=== PATIENT | male | born 1970 | race Caucasian/White ===

== ENCOUNTER 2017-03-15 22:26 | Inpatient (IN) | payer OTHER ==
[~2017-03-15] VITALS: Ht 182.9 cm; Wt 111.9 kg
[~2017-03-15 22:26] MED LIST: ALBUAER2 PO; BUPR-83 PO; CALCTAB5 PO; DULO60CA44 PO; ERGO1CAP35 PO; ETOD400T PO; MAGNESIUM PO; OMEG10007 PO; PREG1CAP70 PO; TIZA4CAP PO; TRAM-10 PO
[2017-03-15] MEDS ORDERED: FRCT/ PO (23:25)
[2017-03-15] MEDS ORDERED: DICY10CA12 PO (23:25)
[2017-03-15] MEDS ORDERED: TRAZ100T29 PO (23:25)
[2017-03-15] MEDS ORDERED: MAGN400T6 PO (23:25)
[2017-03-15] MEDS ORDERED: ATOR-24 PO (23:25)
[2017-03-15] MEDS ORDERED: SENN-61 PO (23:25)
[2017-03-15] MEDS ORDERED: SIME80CH PO (23:25)
[2017-03-15] MEDS ORDERED: LCTX PO (23:25)
[2017-03-15] MEDS ORDERED: HALOPERIDOL LACTATE 5 MG/ML 1 ML VIAL IM STA (23:38)
[2017-03-15] MEDS ORDERED: LORAZEPAM 2 MG/ML 1 ML VIAL IM STA (23:38)
--- NOTE | 2017-03-16 00:03 | EMERGENCY ROOM VISIT NOTE ---
History Report prepared by Govind: Harjeet Almanzar Under the Supervision of: Dr. Bella Mazariegos M.D. First contact with patient: 23:36 Chief Complaint: MENTAL HEALTH EVALUATION Stated Complaint: MENTAL HEALTH History of Present Illness The patient is a 46 year old male who presents to the Emergency Room for a mental health evaluation. This HPI is grossly limited due to the poor cooperation and combativeness of the patient. History Limited By: poor cooperation Review of Systems See HPI for pertinent positives & negatives. A total of 10 systems reviewed and were otherwise negative. Past Medical & Surgical Medical Problems: (1) HTN (hypertension) (2) Hyperlipidemia (3) Stomach problems Family History FH: HTN (hypertension) FH: cancer FH: diabetes mellitus Social History Smoking Status: Never Smoker Marital Status: Housing Status: lives with significant other Occupation Status: disabled Current/Historical Medications Scheduled Atorvastatin (Lipitor), 20 MG PO DAILY Bupropion (Wellbutrin), 100 MG PO BID Calcium (Caltrate), 600 MG PO DAILY Dicyclomine Hcl (Dicyclomine Hcl), 10 CAP PO BID Duloxetine Hcl (Cymbalta), 60 MG PO DAILY Fish Oil ([place]-3), 1 CAP PO DAILY Lactobacillus Acidophilus (Lactinex), 1 TAB PO DAILY Magnesium Oxide (Mag-Ox), 400 MG PO DAILY Simethicone (Gas-X), 80 MG PO TID Trazodone Hcl (Trazodone), 150 MG PO HS Scheduled PRN Acetamin/Butalbital/Caffeine (Fioricet), 2 TAB PO DAILY PRN for Headache Etodolac (Etodolac), 400 TAB PO TID PRN for PRN Senna (Senokot), 1 TAB PO DAILY PRN for PRN Allergies Coded Allergies: No Known Allergies (Unverified , 03/15/17) Physical Exam Vital Signs Date Time Temp Pulse Resp B/P Pulse Ox O2 Delivery O2 Flow Rate FiO2 03/16/17 03:55 90 16 112/63 95 Room Air 03/16/17 00:30 84 18 127/86 99 Room Air 03/15/17 22:30 36.8 87 18 137/97 98 Room Air Physical Exam Vital signs reviewed. General: Well-appearing male, slightly agitated. Being physically restrained by security. Yelling obscenities. Police in the room HEENT: No scleral icterus, PERRLA, neck supple. Atraumatic. Cardiovascular: Regular rate and rhythm, no extra sounds. Pulmonary: Clear to auscultation bilaterally, normal work of breathing. Abdomen: Soft, nontender, nondistended, positive bowel sounds. Musculoskeletal: Atraumatic, no peripheral edema. Neurologic: Patient awake alert and oriented x 3, full strength in all 4 extremities. Cranial nerves 2 through 12 grossly intact. Skin: Warm, dry, no rash Psych: Denies suicidal ideation. Medical Decision & Procedures Laboratory Results 03/16/17 00:14 Red Blood Count 5.40, Mean Corpuscular Volume 83.1, Mean Corpuscular Hemoglobin 28.3, Mean Corpuscular Hemoglobin Concent 34.1, Mean Platelet Volume 10.5, Neutrophils (%) (Auto) 63.3, Lymphocytes (%) (Auto) 30.7, Monocytes (%) (Auto) 4.0, Eosinophils (%) (Auto) 1.4, Basophils (%) (Auto) 0.3, Neutrophils # (Auto) 4.94, Lymphocytes # (Auto) 2.39, Monocytes # (Auto) 0.31, Eosinophils # (Auto) 0.11, Basophils # (Auto) 0.02 03/16/17 00:14 Test 03/16/17 00:14 03/16/17 01:31 White Blood Count 7.79 K/uL (4.8-10.8) Red Blood Count 5.40 M/uL (4.7-6.1) Hemoglobin 15.3 g/dL (14.0-18.0) Hematocrit 44.9 % (42-52) Mean Corpuscular Volume 83.1 fL (80-100) Mean Corpuscular Hemoglobin 28.3 pg (25-34) Mean Corpuscular Hemoglobin Concent 34.1 g/dl (32-36) Platelet Count 200 K/uL (130-400) Mean Platelet Volume 10.5 fL (7.4-10.4) Neutrophils (%) (Auto) 63.3 % Lymphocytes (%) (Auto) 30.7 % Monocytes (%) (Auto) 4.0 % Eosinophils (%) (Auto) 1.4 % Basophils (%) (Auto) 0.3 % Neutrophils # (Auto) 4.94 K/uL (1.4-6.5) Lymphocytes # (Auto) 2.39 K/uL (1.2-3.4) Monocytes # (Auto) 0.31 K/uL (0.11-0.59) Eosinophils # (Auto) 0.11 K/uL (0-0.5) Basophils # (Auto) 0.02 K/uL (0-0.2) RDW Standard Deviation 39.1 fL (36.4-46.3) RDW Coefficient of Variation 13.0 % (11.5-14.5) Immature Granulocyte % (Auto) 0.3 % Immature Granulocyte # (Auto) 0.02 K/uL (0.00-0.02) Anion Gap 13.0 mmol/L (3-11) Est Creatinine Clear Calc Drug Dose 75.9 ml/min Estimated GFR () 59.0 Estimated GFR (Non- 50.9 BUN/Creatinine Ratio 6.9 (10-20) Calcium Level 9.1 mg/dl (8.5-10.1) Total Bilirubin 0.6 mg/dl (0.2-1) Direct Bilirubin 0.2 mg/dl (0-0.2) Aspartate Amino Transf (AST/SGOT) 24 U/L (15-37) Alanine Aminotransferase (ALT/SGPT) 57 U/L (12-78) Alkaline Phosphatase 62 U/L (45-117) Total Protein 7.6 gm/dl (6.4-8.2) Albumin 4.0 gm/dl (3.4-5.0) Thyroid Stimulating Hormone (TSH) 4.620 uIu/ml (0.300-4.500) Free Thyroxine 0.98 ng/dl (0.80-1.60) Free Triiodothyronine 3.64 pg/ml (2.30-4.20) Salicylates Level < 1.7 mg/dl (2.8-20) Acetaminophen Level < 2 ug/ml (10-30) Ethyl Alcohol mg/dL < 3.0 mg/dl (0-3) Urine Color YELLOW Urine Appearance CLEAR (CLEAR) Urine pH 5.5 (4.5-7.5) Urine Specific [place] 1.010 (1.000-1.030) Urine Protein NEG (NEG) Urine Glucose (UA) NEG (NEG) Urine Ketones NEG (NEG) Urine Occult Blood NEG (NEG) Urine Nitrite NEG (NEG) Urine Bilirubin NEG (NEG) Urine Urobilinogen NEG (NEG) Urine Leukocyte Esterase NEG (NEG) Urine Opiates Screen NEG (NEG) Urine Methadone, Qualitative NEG (NEG) Urine Barbiturates NEG (NEG) Urine Phencyclidine (PCP) Level NEG (NEG) Ur Amphetamine/Methamphetamine NEG (NEG) MDMA (Ecstasy) Screen POS (NEG) Urine Benzodiazepines Screen NEG (NEG) Urine Cocaine Metabolite NEG (NEG) Urine Marijuana (THC) NEG (NEG) Laboratory results per my review. Medications Administered Medications (Trade) Dose Ordered Sig/Clifford Route Start Time Stop Time Status Last Admin Dose Admin Haloperidol Lactate (Haldol Inj) 10 mg NOW STAT IM 03/15/17 23:38 03/15/17 23:39 DC 03/15/17 23:38 10 MG Lorazepam (Ativan Inj) 2 mg NOW STAT IM 03/15/17 23:38 03/15/17 23:39 DC 03/15/17 23:38 2 MG ED Course 2337: Past medical records reviewed. The patient was evaluated in room A5. A complete history and physical examination was performed. 2338: Ordered Ativan 2 mg IM, Haldol 10 mg IM. 0240: I discussed the case with the [address] [place] [address] Delegate at this time. She states that the patient claimed "I do not wanna live anymore" before going to the truck where he was keeping his guns. Suggests inpatient treatment. 0511: The patient has been accepted to [address] [place] [address] at this time. Medical Decision Differential diagnosis: Etiologies such as mood disorder, infection, hypoglycemia, electrolyte abnormalities, cardiac sources, intracerebral event, toxicologic, neurologic, as well as others were entertained. This patient was evaluated and appeared to be in no significant distress. The patient was agitated and combative. He was restrained by security, police were present. The patient was violent and required sedation with 10 mg of IM Haldol and 2 mg of IM Ativan. Eventually the patient was able to be released from the [address] [place] [address]. He was much more cooperative. Patient was evaluated by mental health after a 302 warrant. After conversations with the patient's and with him, it was determined that the patient made significant gestures towards suicide attempt. His was able to interrupt the attempt. At this time I do not think the patient is stable to be released. The 302 was signed. 3 [address]. has accepted the patient for admission. Consults Time Called: 020 Consulting Physician: [address] [place] [address] Anuraggatjackie Returned Call: 0240 I discussed the case with the [address] [place] [address] Delegate at this time. She states that the patient claimed "I do not wanna live anymore" before going to the truck where he was keeping his guns. Suggests inpatient treatment. Impression Primary Impression: Mood disorder Additional Impression: Suicidal behavior Critical Care I have personally spent greater than 30 minutes of critical care time in the direct management of this patient. This includes bedside care, interpretation of diagnostic studies, and testing, discussion with consultants, patient, and family members, and other required patient management activities. This 30 minutes is in excess of all separately billable procedures. Scribe Attestation The scribe's documentation has been prepared under my direction and personally reviewed by me in its entirety. I confirm that the note above accurately reflects all work, treatment, procedures, and medical decision making performed by me. Departure Information Dispostion [facility] ([address] [place] [address] ) Referrals No Doctor, Assigned (PCP) Patient Instructions My [facility] Problem Qualifiers
[2017-03-16 00:39] LABS: BASO % 0.3 %; BASO ABS # 0.02 K/uL (0-0.2); COMPLETE YES; EOS % 1.4 %; HEMATOCRIT 44.9 % (42-52); IG% 0.3 %; LYMPH % 30.7 %; LYMPH ABS # 2.39 K/uL (1.2-3.4); MEAN CELL VOLUME 83.1 fL (80-100); MEAN CORPUSCULAR HEMOGLOBIN 28.3 pg (25-34); MEAN CORPUSCULAR HGB CONC 34.1 g/dl (32-36); MEAN PLATELET VOLUME 10.5 fL (7.4-10.4); NEUT % 63.3 %; PLATELET COUNT 200 K/uL (130-400); WHITE BLOOD COUNT 7.79 K/uL (4.8-10.8)
[2017-03-16 01:00] LABS: BUN/CREATININE RATIO 6.9 (10-20); CALCIUM 9.1 mg/dl (8.5-10.1); CREATININE 1.6 mg/dl (0.60-1.40); POTASSIUM 3.6 mmol/L (3.5-5.1)
[2017-03-16 01:10] LABS: ACETAMINOPHEN < 2 ug/ml (10-30)
[2017-03-16 01:11] LABS: THYROID STIMULATING HORMONE 4.62 uIu/ml (0.300-4.500)
[2017-03-16 01:47] LABS: URINE APPEARANCE CLEAR (CLEAR); URINE BILIRUBIN NEG (NEG); URINE COLOR YELLOW; URINE NITRITE NEG (NEG); URINE PH 5.5 (4.5-7.5); UROBILINOGEN NEG (NEG); ZZUR CULT IF INDIC CLEAN CATCH NO
[2017-03-16 01:56] LABS: MANUAL MICROSCOPIC REQUIRED? NO; REVIEW REQ? NO
[2017-03-16 02:20] LABS: BENZODIAZEPINE, URINE NEG (NEG); COCAINE,URINE NEG (NEG); PHENCYCLIDINE, URINE NEG (NEG)
[2017-03-16] MEDS ORDERED: NURSING VERBAL MED ORDER ONE (05:45)
[2017-03-16 05:50] VITALS: O2SAT 95
[2017-03-16] MEDS ORDERED: ALBUTEROL HFA 8 GM INHALER INH PRN (06:30)
[2017-03-16] MEDS ORDERED: MAGNESIUM HYDROXIDE SUSP 30 ML UDC PO PRN (06:30)
[2017-03-16] MEDS ORDERED: ACETAMINOPHEN 325 MG TAB PO PRN (06:30)
[2017-03-16] MEDS ORDERED: TRAMADOL HCL 50 MG TAB PO PRN (06:30)
[2017-03-16] MEDS ORDERED: hydrOXYzine HCL 25 MG TAB PO PRN ×2 (06:30)
[2017-03-16] MEDS ORDERED: SODIUM CHLORIDE 0.65% NA SOLN 45 ML (OCEAN) PRN (06:30)
[2017-03-16] MEDS ORDERED: BISMUTH SUBSALICYLATE PER ML OMNICELL CHARGE PO PRN (06:30)
[2017-03-16] MEDS ORDERED: ALUMINUM/MAGNESIUM SUSP 30 ML UDC PO PRN (06:30)
[2017-03-16] MEDS ORDERED: PREG1CAP70 PO (08:47)
[2017-03-16] MEDS ORDERED: CHOL400T5 PO (08:50)
[2017-03-16] MEDS ORDERED: DICY10CA12 PO (08:55)
[2017-03-16] MEDS ORDERED: SIME80CH40 PO (08:56)
[2017-03-16] MEDS ORDERED: CYAN100073 PO (08:57)
[2017-03-16 11:28] VITALS: BP 117/75; PULSE 86; TEMP 36.6; Ht 182.9 cm; Wt 111.9 kg
[2017-03-16] MEDS: DULOXETINE HCL 60 MG CAP PO SCH (11:57)
[2017-03-16] MEDS: MAGNESIUM OXIDE 400 MG TAB PO SCH (11:57)
[2017-03-16] MEDS: CALCIUM 600MG + VIT D 400 IU TAB PO SCH (11:57)
[2017-03-16] MEDS: OMEGA-3 (PURIFIED FISH OIL) 1 GM CAP PO SCH (11:58)
[2017-03-16] MEDS: PREGABALIN 150 MG CAP PO SCH ×3 (11:59→21:04)
[2017-03-16] MEDS ORDERED: LORAZEPAM 1 MG TAB PO PRN (13:15)
[2017-03-16] MEDS ORDERED: HALOPERIDOL 5 MG TAB PO PRN (13:15)
[2017-03-16 14:30] VITALS: BP 117/75; PULSE 86; TEMP 36.6
[2017-03-16] MEDS: ETODOLAC~ORDER AWAITING ACTION SCH (15:27)
--- NOTE | 2017-03-16 17:26 | Psychiatric History & Physical ---
History Date of Service Mar 16, 2017. Identifying Data Brain Mcdermott is a 46-year-old male who currently lives in [place] with his and son. Brain Mcdermott was admitted on a 302 involuntary commitment. Patient was brought to the ED by EMS and committed after a complicated ED course which included elopement. Chief Complaint "I just couldn't handle it", referring to finding out his was unfaithful History of Present Illness Mr. Mcdermott appeared tired this am following IM Haldol and Ativan received in ED. A taser was used during his elopement attempt from the ED and he was in 4 pt restraints for a period. He states he has a history of significant PTSD symptoms and felt locked in and panicked when he saw security "circling". He states that his overreacted after their argument when he was attempting to leave in his truck. He admittedly keeps a handgun in his truck (his brother has since secured). He denies making statements about overdosing but his expressed concern that he did and that he had access to 90 day supply of meds. He stated that his was unfaithful 7 years ago but he just found out about it this past Tuesday. Their relationship was going particularly well in recent months other than stress of their only son being on house arrest. He has chronic pain due to fibromyalgia. He did not want to discuss triggers/causes of his PTSD but clearly stated he has been having bad dreams and flashbacks related to his service in [employer] in the [employer]st [employer]. He feels that his symptoms have actually improved since being started on Cymbalta and states he already [facility] Sleep has been good with trazadone and he denied depressive symptoms prior to his 's revelation. He believes that she told him about the affair as perhaps a coworker or former acquaintance recently was bringing up verifiable details and he believes she was concerned that he would hear it from someone else. Past Psychiatric History Prior OP Treatment: psychiatrist, therapist Prior Psych Hospitalizations: none Access to a Gun: Yes (gun in truck (brother removed and has now)) Suicide Attempts: No Past Medication Trials patient reports just his current meds, takes Wellbutrin am and midday Past Medical/Surgical History (1) Kidney stone (2) HTN (hypertension) (3) Hyperlipidemia (4) Fibromyalgia history of nerve gas exposure, main reason for service connected disability Allergies Allergies: Coded Allergies: No Known Allergies (Unverified , 03/15/17) Home Medications Scheduled Atorvastatin (Lipitor), 20 MG PO DAILY Bupropion (Wellbutrin), 100 MG PO BID Calcium (Caltrate), 600 MG PO DAILY Cholecalciferol (Vitamin D), 1 TAB PO DAILY Cyanocobalamin (B12), 1 TAB PO DAILY Dicyclomine Hcl (Dicyclomine Hcl), 1 CAP PO QID Duloxetine Hcl (Cymbalta), 60 MG PO DAILY Fish Oil ([place]-3), 1 CAP PO DAILY Lactobacillus Acidophilus (Lactinex), 1 TAB PO DAILY Magnesium Oxide (Mag-Ox), 400 MG PO DAILY Pregabalin (Lyrica), 150 MG PO TID Trazodone Hcl (Trazodone), 150 MG PO HS Scheduled PRN Acetamin/Butalbital/Caffeine (Fioricet), 2 TAB PO DAILY PRN for Headache Etodolac (Etodolac), 400 TAB PO TID PRN for PRN Senna (Senokot), 1 TAB PO DAILY PRN for PRN Simethicone (Cvs Gas Relief), 1 TAB PO TID PRN for Gas or Constipation Family History FH: HTN (hypertension) FH: cancer FH: diabetes mellitus History of Suicide: No History of Substance Abuse: No Psychiatric History: No Alcohol Use Alcohol Use In Past 12 Months: No AUDIT Total Score: 0 Smoking Use Smoking Status: Never Smoker Substance History denied Personal History Lives in: [place] Education: graduated from high school Work History: [employer], disability following [employer]. Relationship History: Children: 1 son Legal History: none Psychological Trauma History: Combat Experiences Review of Systems Psych: denies symptoms other than stated above Constitutional: generalized fatigue/muscle complaints due to ED interventions in excess of his baseline fibromyalgia Cardiovascular: denied GI: denied Neurologic: denied, no dystonia Remainder of 10 body systems also reviewed and denied other than noted above. Examination Physical Examination A physical exam was performed in the ER by Dr. Mazariegos prior to admission to the unit. I accept that physical as correct/medical clearance for the inpatient physical exam. Vital Signs Vital Signs Past 12 Hours Date Time Temp Pulse Resp B/P Pulse Ox O2 Delivery O2 Flow Rate FiO2 03/16/17 14:30 36.6 86 16 117/75 03/16/17 11:28 36.6 86 16 117/75 03/16/17 05:50 67 20 114/71 95 Room Air Laboratory Results Last 24 Hours Test 03/16/17 00:14 03/16/17 01:31 White Blood Count 7.79 K/uL Red Blood Count 5.40 M/uL Hemoglobin 15.3 g/dL Hematocrit 44.9 % Mean Corpuscular Volume 83.1 fL Mean Corpuscular Hemoglobin 28.3 pg Mean Corpuscular Hemoglobin Concent 34.1 g/dl Platelet Count 200 K/uL Mean Platelet Volume 10.5 fL Neutrophils (%) (Auto) 63.3 % Lymphocytes (%) (Auto) 30.7 % Monocytes (%) (Auto) 4.0 % Eosinophils (%) (Auto) 1.4 % Basophils (%) (Auto) 0.3 % Neutrophils # (Auto) 4.94 K/uL Lymphocytes # (Auto) 2.39 K/uL Monocytes # (Auto) 0.31 K/uL Eosinophils # (Auto) 0.11 K/uL Basophils # (Auto) 0.02 K/uL RDW Standard Deviation 39.1 fL RDW Coefficient of Variation 13.0 % Immature Granulocyte % (Auto) 0.3 % Immature Granulocyte # (Auto) 0.02 K/uL Sodium Level 142 mmol/L Potassium Level 3.6 mmol/L Chloride Level 107 mmol/L Carbon Dioxide Level 22 mmol/L Anion Gap 13.0 mmol/L Blood Urea Nitrogen 11 mg/dl Creatinine 1.60 mg/dl Est Creatinine Clear Calc Drug Dose 75.9 ml/min Estimated GFR () 59.0 Estimated GFR (Non- 50.9 BUN/Creatinine Ratio 6.9 Random Glucose 109 mg/dl Calcium Level 9.1 mg/dl Total Bilirubin 0.6 mg/dl Direct Bilirubin 0.2 mg/dl Aspartate Amino Transf (AST/SGOT) 24 U/L Alanine Aminotransferase (ALT/SGPT) 57 U/L Alkaline Phosphatase 62 U/L Total Protein 7.6 gm/dl Albumin 4.0 gm/dl Thyroid Stimulating Hormone (TSH) 4.620 uIu/ml Free Thyroxine 0.98 ng/dl Free Triiodothyronine 3.64 pg/ml Salicylates Level < 1.7 mg/dl Acetaminophen Level < 2 ug/ml Ethyl Alcohol mg/dL < 3.0 mg/dl Urine Color YELLOW Urine Appearance CLEAR Urine pH 5.5 Urine Specific [place] 1.010 Urine Protein NEG Urine Glucose (UA) NEG Urine Ketones NEG Urine Occult Blood NEG Urine Nitrite NEG Urine Bilirubin NEG Urine Urobilinogen NEG Urine Leukocyte Esterase NEG Urine Opiates Screen NEG Urine Methadone, Qualitative NEG Urine Barbiturates NEG Urine Phencyclidine (PCP) Level NEG Ur Amphetamine/Methamphetamine NEG MDMA (Ecstasy) Screen POS Urine Benzodiazepines Screen NEG Urine Cocaine Metabolite NEG Urine Marijuana (THC) NEG Mental Examination During interview pt is: alert and oriented Appearance: appropriately groomed Eye contact is: poor Motor behavior is: no abnormal motor movements Speech: normal in rate, rhythm & volume Affect: depressed Mood is: depressed Thought process: clear, coherent Thought content: reality based without delusions Suicidal thought are: denied Homicidal thoughts are: denied Hallucinations: denies auditory, denies visual Cognition: attention grossly intact, language grossly intact Intelligence estimated to be: consistent with level of education Insight: limited Judgement: limited Impression / Recommendations Impression 46 yo male with history of PTSD related to service admit on 302 after elopement attempt/agitation in ED. Main trigger for suicidal statements (which he denies) was finding out about 's past infidelity. Risk Factors Assessment Male: Yes : Yes Access to guns: Yes (gun in truck (brother removed and has now)) Mental Health Diagnoses: Yes Substance use disorders: No Previous attempt: No Protective Factors Assessment : Yes Recommendations (1) PTSD (post-traumatic stress disorder) 03/16-- unclear if co-morbid depression or reactivity related to PTSD, certainly behavior in ED is consistent with PTSD dx. Denies history of willis and no evidence of willis on exam. The patient is admitted to [facility] ([facility] inpatient mental health unit) on q 15 min checks (behavioral with suicide precautions) for safety. The patient will participate in group, recreational and milieu therapies and will be offered additional individual and family sessions as clinically appropriate. (2) Relationship problem between partners family meeting with today, both agreeable to couples counseling CPT Code Initial Hospital Care: [id number]
[2017-03-16] MEDS: TRAZODONE HCL 100 MG TAB PO SCH (21:04)
[2017-03-17 06:57] VITALS: BP_SYST 111; BP_SYST 113; BP_DIAS 68; BP_DIAS 73; PULSE 101; PULSE 56; TEMP 36.8
[2017-03-17 07:57] LABS: CHOLESTEROL/HDL RATIO 7.8
[2017-03-17] MEDS: ETODOLAC~ORDER AWAITING ACTION SCH ×3 (08:00→16:00)
[2017-03-17] MEDS: PREGABALIN 150 MG CAP PO SCH ×3 (09:37→21:24)
[2017-03-17] MEDS: DULOXETINE HCL 60 MG CAP PO SCH (09:37)
[2017-03-17] MEDS: OMEGA-3 (PURIFIED FISH OIL) 1 GM CAP PO SCH (09:37)
[2017-03-17] MEDS: MAGNESIUM OXIDE 400 MG TAB PO SCH (09:37)
[2017-03-17] MEDS: CALCIUM 600MG + VIT D 400 IU TAB PO SCH (09:37)
--- NOTE | 2017-03-17 11:41 | Psychiatric Progress Notes ---
Progress Note Date of Service Mar 17, 2017. Interval History 46 yo male admitted on a 302 involuntary commitment after making suicidal statements to his . Deterioration occurred in the context of the patient dealing with the having had an affair in the past. Chief Complaint "I'm not a bad person.". Subjective Patient was seen & assessed interval progress reviewed with Treatment Team. The patient says that his meeting with his went well yesterday. He feels that each time they are able to have a therapy session, they make more progress. He is hopeful to be discharged [facility] so that he can return to his and continue their work. He talked about their 24 yo son who is on house arrest and has behavioral problems. He describes that his has been overprotective with their son, and the son has no desire to move out of their home. Brain has kicked him out previously, when the son was in high school, and this coincides with the time when his then had an affair. He is now affair to cross his about their son for fear it will again injure their relationship. He also reviewed the events in the ER, feeling that he was tricked into coming to the hospital and being committed. Today he says that he is not suicidal, although he clearly remains depressed, and cries when talking about wanting to get back to his . He feels safe here, and has been in good behavioral control. Review of Systems Constitutional: No chills, No fatigue, No fever, No problem reported, No sweats , No weakness, No weight loss ENT: No dental problems, No hearing loss, No nasal symptoms, No problem reported, No sore throat, No tinnitus, No trouble swallowing, No unusual epistaxis Respiratory: No cough, No dyspnea at rest, No dyspnea on exertion, No hemoptysis, No problem reported, No shortness of breath, No sputum, No wheezing Cardiovascular: No PND, No chest pain, No claudication, No edema, No orthopnea , No palpitations, No problem reported Abdomen: No GI bleeding, No constipation, No diarrhea, No nausea, No pain, No problem reported, No vomiting Musculoskeletal: No calf pain, No joint pain, No muscle pain, No problem reported, No swelling Neurologic: No balance problems, No memory loss, No numbness/tingling, No paralysis, No problem reported, No vertigo, No weakness Psychiatric: + depression symptoms Integumentary: No bleeding, No color change, No itch, No new/changing skin lesions, No problem reported, No rash Sleep Information Total Hours of Sleep: 9.00 Meal Information Percent of Breakfast Consumed: 75 Percent of Lunch Consumed: 0 Percent of Dinner Consumed: 75 Mental Status Exam During interview pt is: alert and oriented Appearance: appropriately groomed Eye contact is: poor Motor behavior is: no abnormal motor movements Speech: normal in rate, rhythm & volume Affect: depressed, tearful (at times when talking about his ) Mood is: depressed Thought process: clear, coherent Thought content: reality based without delusions Suicidal thought are: denied Homicidal thoughts are: denied Hallucinations: denies auditory, denies visual Cognition: attention grossly intact, language grossly intact Intelligence estimated to be: consistent with level of education Insight: limited Judgement: limited Impression Is adjusting to the unit, but wants to be discharged [facility]. FAmily meeting went well and willing for him to return home. At this point, we would like to keep for for at least another day's observation given that he had such a severe reaction requiring a tazer while he was in the ER, and he remains depressed and easily tearful. He is here on a 302. Plan (1) PTSD (post-traumatic stress disorder) 03/16-- unclear if co-morbid depression or reactivity related to PTSD, certainly behavior in ED is consistent with PTSD dx. Denies history of willis and no evidence of willis on exam. The patient is admitted to [facility] ([facility] inpatient mental health unit) on q 15 min checks (behavioral with suicide precautions) for safety. The patient will participate in group, recreational and milieu therapies and will be offered additional individual and family sessions as clinically appropriate. 03/17 - Recommend OP therapy through the [facility] (2) Relationship problem between partners family meeting with today, both agreeable to couples counseling 03/17 - Patient refusing dosage escalation of antidepressants Discharge / Aftercare Planning Primary Care Physician: Name: Dr. Sneed, [facility] Psychiatrist: Name: [facility] Therapist: Name: [facility], Visit Code E&M Code: 66298 Risk Factors Assessment Male: Yes : Yes Mental Health Diagnoses: Yes Substance use disorders: No Previous attempt: No Protective Factors Assessment : Yes Stable relationships: No Supportive family: Yes Good rapport with provider: Yes Data Vital Signs Last 24 Hrs: Date Time Temp Pulse Resp B/P Pulse Ox O2 Delivery O2 Flow Rate FiO2 03/17/17 06:57 36.8 56 16 111/68 101 113/73 03/16/17 14:30 36.6 86 16 117/75 03/16/17 11:28 36.6 86 16 117/75 Meds Administered Last 24 Hrs: Meds Administered (Past 24Hrs) Medications (Trade) Dose Ordered Sig/Clifford Route Start Time Stop Time Status Last Admin Dose Admin Haloperidol Lactate (Haldol Inj) 10 mg NOW STAT IM 03/15/17 23:38 03/15/17 23:39 DC 03/15/17 23:38 10 MG Lorazepam (Ativan Inj) 2 mg NOW STAT IM 03/15/17 23:38 03/15/17 23:39 DC 03/15/17 23:38 2 MG Pregabalin (Lyrica Cap) 150 mg TID PO 03/16/17 09:00 04/15/17 08:59 03/17/17 09:37 150 MG Fish Oil ([place]-3 (Purified Fish Oil) Cap) 1 gm DAILY PO 03/16/17 09:00 04/15/17 08:59 03/17/17 09:37 1 GM Magnesium Oxide (Mag-Ox Tab) 400 mg DAILY PO 03/16/17 09:00 04/15/17 08:59 03/17/17 09:37 400 MG Calcium/Vitamin D (Caltrate Plus Tab) 1 tab DAILY PO 03/16/17 09:00 04/15/17 08:59 03/17/17 09:37 1 TAB Duloxetine HCl (Cymbalta Cap) 60 mg DAILY PO 03/16/17 09:00 04/15/17 08:59 03/17/17 09:37 60 MG Bupropion HCl (Wellbutrin Tab) 100 mg BID PO 03/16/17 09:00 03/16/17 19:40 DC 03/16/17 11:58 100 MG Trazodone HCl (Desyrel Tab) 150 mg HS PO 03/16/17 22:00 04/15/17 21:59 03/16/17 21:04 150 MG Bupropion HCl (Wellbutrin Tab) 100 mg DAILY@0800,1400 PO 03/17/17 08:00 04/15/17 08:59 03/17/17 09:37 100 MG Bupropion HCl (Wellbutrin Tab) 100 mg 2000 ONCE PO 03/16/17 20:00 03/16/17 20:01 DC 03/16/17 20:39 100 MG Lab Results Last 24 Hrs: Last 24 Hours Test 03/17/17 07:05 Fasting Glucose 105 mg/dl Triglycerides Level 176 mg/dl Cholesterol Level 250 mg/dl HDL Cholesterol 32 mg/dl LDL Cholesterol, Calculated 183 mg/dl VLDL Cholesterol, Calculated 35 mg/dl Cholesterol/HDL Ratio 7.8
[2017-03-17] MEDS: TRAZODONE HCL 100 MG TAB PO SCH (21:24)
[2017-03-18 06:42] VITALS: BP_SYST 118; BP_SYST 120; BP_DIAS 76; BP_DIAS 79; PULSE 63; PULSE 70; TEMP 36.3
[2017-03-18] MEDS: ETODOLAC~ORDER AWAITING ACTION SCH ×2 (07:46)
[2017-03-18] MEDS: DULOXETINE HCL 60 MG CAP PO SCH (08:11)
[2017-03-18] MEDS: PREGABALIN 150 MG CAP PO SCH (08:11)
[2017-03-18] MEDS: OMEGA-3 (PURIFIED FISH OIL) 1 GM CAP PO SCH (08:11)
[2017-03-18] MEDS: CALCIUM 600MG + VIT D 400 IU TAB PO SCH (08:11)
[2017-03-18] MEDS: MAGNESIUM OXIDE 400 MG TAB PO SCH (08:11)
--- NOTE | 2017-03-18 09:01 | Discharge Instructions ---
Discharge Information Report Includes Report will include the: Discharge Instructions & Summary Admission Admission Date / Time: Mar 16, 2017 at 05:38 Reason for Admission: Suicidal W/ Plan Discharge Discharge Diagnosis / Problem: PTSD Condition at Discharge: Good Discharge Goals Goal(s): Improve function, Improve disease control Activity Recommendations Activity Limitations: resume your previous activity . Instructions / Follow-Up Instructions / Follow-Up . SPECIAL CARE INSTRUCTIONS: 1. Follow through with your scheduled aftercare appointments. If unable to keep an appointment, please call to reschedule. 2. Take your medication only as prescribed. Medication should not be changed or stopped without the approval of your doctor. In the event of worsening symptoms or concerns about side effects, contact your doctor immediately. 3. Utilize new healthy coping skills, anger management skills, and stress management skills learned during your hospitalization. Journal feelings and process them with a support person. Identify stressors or situations that may result in relapse, deterioration or inappropriate behaviors and develop a plan to deal with those issues. 4. If your coping skills are ineffective and you are in crisis, contact your outpatient providers for direction. If unable to reach your providers, please call the CAN HELP LINE AT or go to the closest Emergency Room. 5. Avoid alcohol and un-prescribed drugs. 6. You have been provided with the Mental Health Advance Directives Pamphlet for your review. AFTERCARE APPOINTMENTS: * Please call your insurance company prior to your scheduled appointment to confirm your aftercare providers are covered. Take your insurance information to your appointments. . Discharge / Aftercare Planning Primary Care Physician: Name: Dr. Sneed, [facility] Psychiatrist: Name: [facility] Date of Appointment: Mar 21, 2017 Time of Appointment: 1:00pm Appointment Notes: with "Declan" Therapist: Name Of Therapist: [facility] . Follow-Up Care Plan for Follow-Up Care: your medications were continued unchanged in the hospital we advise that your brother continue to oversee your weapon and that you family assist in securing 90 day supplies of meds Current Hospital Diet Patient's current hospital diet: Regular Diet Discharge Diet Recommended Diet: Regular Diet Procedures Procedures Performed: No Pending Studies Pending Studies at Discharge: No Medical Emergencies . Who to Call and When: Medical Emergencies: For questions or emergencies related to your hospital stay, please contact the Inpatient Behavioral Health Unit at [phone]. A plaster maker is on-call 20/06 for the Behavioral Health Unit for emergencies At any time you feel your situation is an emergency, you may also call 911 immediately. . Non-Emergent Contact Non-Emergency issues call your: Primary Care Provider, Psychiatrist Call Non-Emergent contact if: you have any medication questions ([facility]) Advance Directives Existing Advance Directive: Yes Do You Have an Existing Mental: No Existing Living Will: Yes Existing Power of Radiagraph Operator: No The Person Making Decisions: n/a Advance Directives Info Given: To Pt/S.O. Advance Directives Reason: Declines to seek POA as Mental Health Visit. Discharge Summary Admission HPI Per the Admitting provider: Mr. Mcdermott appeared tired this am following IM Haldol and Ativan received in ED. A taser was used during his elopement attempt from the ED and he was in 4 pt restraints for a period. He states he has a history of significant PTSD symptoms and felt locked in and panicked when he saw security "circling". He states that his overreacted after their argument when he was attempting to leave in his truck. He admittedly keeps a handgun in his truck (his brother has since secured). He denies making statements about overdosing but his expressed concern that he did and that he had access to 90 day supply of meds. He stated that his was unfaithful 7 years ago but he just found out about it this past Tuesday. Their relationship was going particularly well in recent months other than stress of their only son being on house arrest. He has chronic pain due to fibromyalgia. He did not want to discuss triggers/causes of his PTSD but clearly stated he has been having bad dreams and flashbacks related to his service in [employer] in the [place] [place] [employer]. He feels that his symptoms have actually improved since being started on Cymbalta and states he already initiated [facility] Sleep has been good with trazadone and he denied depressive symptoms prior to his 's revelation. He believes that she told him about the affair as perhaps a coworker or former acquaintance recently was bringing up verifiable details and he believes she was concerned that he would hear it from someone else. Hospital Course (1) PTSD (post-traumatic stress disorder) 03/16-- unclear if co-morbid depression or reactivity related to PTSD, certainly behavior in ED is consistent with PTSD dx. Denies history of willis and no evidence of willis on exam. The patient is admitted to [facility] ([facility] mental health unit) on q 15 min checks (behavioral with suicide precautions) for safety. The patient will participate in group, recreational and milieu therapies and will be offered additional individual and family sessions as clinically appropriate. 03/17 - Recommend OP therapy through the [place] (2) Relationship problem between partners family meeting with today, both agreeable to couples counseling 03/17 - Patient refusing dosage escalation of antidepressants Risk Factors Assessment Male: Yes : Yes Access to guns: No (secured by brother) Mental Health Diagnoses: Yes Substance use disorders: No Previous attempt: No Protective Factors Assessment : Yes Stable relationships: No Supportive family: Yes Good rapport with provider: Yes Day of Discharge Assessment Mr. Mcdermott continues to deny suicidal or homicidal ideation. He has been behaviorally appropriate on the unit and acting out in ED consistent with his preexisting diagnosis of PTSD. There is no evidence of psychosis as thoughts remain organized and he is not hallucinating. He has had successful family meeting with his and both are agreeable to continue outpatient counseling. He is stable for discharge to outpatient level of care and no longer meets criteria for involuntary hospitalization. His is supportive of his return home today. Laboratory Test 03/16/17 00:14 03/16/17 01:31 03/17/17 07:05 White Blood Count 7.79 Red Blood Count 5.40 Hemoglobin 15.3 Hematocrit 44.9 Mean Corpuscular Volume 83.1 Mean Corpuscular Hemoglobin 28.3 Mean Corpuscular Hemoglobin Concent 34.1 Platelet Count 200 Mean Platelet Volume 10.5 Neutrophils (%) (Auto) 63.3 Lymphocytes (%) (Auto) 30.7 Monocytes (%) (Auto) 4.0 Eosinophils (%) (Auto) 1.4 Basophils (%) (Auto) 0.3 Neutrophils # (Auto) 4.94 Lymphocytes # (Auto) 2.39 Monocytes # (Auto) 0.31 Eosinophils # (Auto) 0.11 Basophils # (Auto) 0.02 RDW Standard Deviation 39.1 RDW Coefficient of Variation 13.0 Immature Granulocyte % (Auto) 0.3 Immature Granulocyte # (Auto) 0.02 Sodium Level 142 Potassium Level 3.6 Chloride Level 107 Carbon Dioxide Level 22 Anion Gap 13.0 Blood Urea Nitrogen 11 Creatinine 1.60 Est Creatinine Clear Calc Drug Dose 75.9 Estimated GFR () 59.0 Estimated GFR (Non- 50.9 BUN/Creatinine Ratio 6.9 Random Glucose 109 Calcium Level 9.1 Total Bilirubin 0.6 Direct Bilirubin 0.2 Aspartate Amino Transferase (AST) 24 Alanine Aminotransferase (ALT) 57 Alkaline Phosphatase 62 Total Protein 7.6 Albumin 4.0 Thyroid Stimulating Hormone (TSH) 4.620 Free Thyroxine 0.98 Free Triiodothyronine 3.64 Salicylates Level < 1.7 Acetaminophen Level < 2 Ethyl Alcohol mg/dL < 3.0 Urine Color YELLOW Urine Appearance CLEAR Urine pH 5.5 Urine Specific [place] 1.010 Urine Protein NEG Urine Glucose (UA) NEG Urine Ketones NEG Urine Occult Blood NEG Urine Nitrite NEG Urine Bilirubin NEG Urine Urobilinogen NEG Urine Leukocyte Esterase NEG Urine Synthetic Stimulants Pending Urine Opiates Screen NEG Urine Methadone, Qualitative NEG Urine Barbiturates NEG Urine Phencyclidine (PCP) Level NEG Ur Amphetamine/Methamphetamine NEG Urine MDE-amphetamine (MDEA) Pending Ur Methylenedioxyamphetamine (MDA) Pending MDMA (Ecstasy) Screen POS Methylenedioxymethamphetamine (MDMA Pending Urine Benzodiazepines Screen NEG Urine Cocaine Metabolite NEG Cannabinoids Comment Pending Urine Synthetic Cannabinoids Pending Ur Synthetic Cannabinoids Confirm Pending Urine Marijuana (THC) NEG Fasting Glucose 105 Triglycerides Level 176 Cholesterol Level 250 HDL Cholesterol 32 LDL Cholesterol, Calculated 183 VLDL Cholesterol, Calculated 35 Cholesterol/HDL Ratio 7.8 Total Time Total Time Spent (min): Greater than 30 minutes Total Time Included: examination of the patient, discharge planning, medication reconciliation Tobacco Cessation at Discharge Smoking Status: Never Smoker FDA approved Prescription: non-smoker
[2017-03-23 18:40] LABS: SYNTHETIC CANNABINOIDS QL URIN NEGATIVE (Negative)
== END 2017-03-18 09:45 | disposition home or self-care (01) | DRG 882 ==
LOC: EDBD 22:26 → C.EDA 22:32 → C.MHU 03-16 05:38
PROVIDERS: ADMIT Psychiatry & Neurology Psychiatry; ATTEND Psychiatry & Neurology Psychiatry
DX: F43.10 Post-traumatic stress disorder, unspecified (principal); R45.851 Suicidal ideations; Y37.90XS Military operations, unspecified, sequela; Z63.0 Problems in relationship with spouse or partner; R45.6 Violent behavior; Z78.1 Physical restraint status; F32.9 Major depressive disorder, single episode, unspecified; I10 Essential (primary) hypertension; G89.29 Other chronic pain; M79.7 Fibromyalgia; E78.5 Hyperlipidemia, unspecified; K31.9 Disease of stomach and duodenum, unspecified; Z57.5 Occupational exposure to toxic agents in other industries; Z79.899 Other long term (current) drug therapy